=== PATIENT | female | born 1980 | race African-American/Black ===

== ENCOUNTER 2016-10-15 06:03 | Emergency (ER) | payer OTHER ==
[~2016-10-15] VITALS: Ht 157.5 cm; Wt 66.7 kg
[~2016-10-15 06:03] MED LIST: CIPRO500 MG PO; MOTRIN800 MG PO; NAPROXEN500 MG PO; PERCOCET 5/31 TABLET PO; PRENATAL VITAM1 EAC1 PO; ULTRAM50 MG PO; [UNRECOGNIZED DRUG - OTHER]
[2016-10-15] MEDS ORDERED: PREDNISONE50 MG PO (07:49)
[2016-10-15] MEDS ORDERED: ZITHROMAX Z-PA250 MG PO (07:49)
[2016-10-15] MEDS ORDERED: PROAIR HFA8.5 GM IH (07:49)
[2016-10-15 08:07] VITALS: BP 119/59
== END 2016-10-15 08:09 | disposition home or self-care (01) ==
LOC: EME 06:03
DX: J20.9 Acute bronchitis, unspecified (principal); J02.9 Acute pharyngitis, unspecified
CPT/HCPCS: 71020; 94640; 99281; 99284; J7512

== ENCOUNTER 2017-03-08 11:09 | Emergency (ER) | payer OTHER ==
[~2017-03-08] VITALS: Ht 157.5 cm; Wt 61.1 kg
[~2017-03-08 11:09] MED LIST changes: +PREDNISONE50 MG PO; +PROAIR HFA8.5 GM IH; +ZITHROMAX Z-PA250 MG PO
[2017-03-08] MEDS ORDERED: NAPROSYN500 MG PO (11:59)
[2017-03-08 12:15] VITALS: BP 100/68
== END 2017-03-08 12:15 | disposition home or self-care (01) ==
LOC: EME 11:09
DX: S80.01XA Contusion of right knee, initial encounter (principal); W01.0XXA Fall on same level from slipping, tripping and stumbling without subsequent striking against object, initial encounter
CPT/HCPCS: 73564; 99281; 99284